=== PATIENT | female | born 1970 | race Caucasian/White ===

== ENCOUNTER → 2017-01-25 | Outpatient (CLI) | payer OTHER ==
[~2017-01-25] MED LIST: AMBIEN10 MG PO; BIRTH CONTROL PILL; CELEXA40 MG PO; HYDROCODONE/APAP; LEXAPRO20 MG PO; LORTAB 5/500 501 TAB PO; MELOXICAM1 POW; VICODIN 5/5001 UDTAB PO
== END ==
LOC: MC.RAD 08:20
DX: Z12.31 Encounter for screening mammogram for malignant neoplasm of breast (principal)

== ENCOUNTER → 2018-07-28 | Outpatient (CLI) | payer OTHER ==
[~2018-07-28] MED LIST changes: +AMBIEN 5MG TABLE5 MG PO; +CARAFATE 1GM1 G PO; +PRIL40 PO; +PRISTIQ25 MG PO
== END ==
LOC: COL.RAD 14:35
DX: R93.2 Abnormal findings on diagnostic imaging of liver and biliary tract (principal); R74.8 Abnormal levels of other serum enzymes; Z90.49 Acquired absence of other specified parts of digestive tract
CPT/HCPCS: A9585

== ENCOUNTER 2018-08-05 13:52 | Day surgery (SDC) | payer OTHER ==
[2018-08-05] VITALS (17 sets, daily range): BP systolic 113–147; BP diastolic 48–82; PULSE 55–84; TEMP 97.4–98.2
[~2018-08-05] VITALS: Ht 167.6 cm; Wt 96.6 kg
[~2018-08-05 13:52] MED LIST changes: -AMBIEN 5MG TABLE5 MG PO; -CARAFATE 1GM1 G PO; -PRIL40 PO; -PRISTIQ25 MG PO
[2018-08-05] MEDS ORDERED: PRISTIQ25 MG PO (14:21)
[2018-08-05] MEDS ORDERED: AMBIEN 5MG TABLE5 MG PO (14:22)
[2018-08-05] MEDS ORDERED: PRIL40 PO (14:22)
[2018-08-05] MEDS ORDERED: CARAFATE 1GM1 G PO (14:22)
== END 2018-08-05 20:15 ==
LOC: SDCO 13:52
DX: K80.50 Calculus of bile duct without cholangitis or cholecystitis without obstruction (principal); R93.2 Abnormal findings on diagnostic imaging of liver and biliary tract; R94.5 Abnormal results of liver function studies; K76.0 Fatty (change of) liver, not elsewhere classified; K58.8 Other irritable bowel syndrome; Z90.49 Acquired absence of other specified parts of digestive tract; Z83.71 Family history of colonic polyps
CPT/HCPCS: C1769; J2704; J7030; Q9967

== ENCOUNTER → 2018-09-29 | Outpatient (CLI) | payer OTHER ==
[~2018-09-29] MED LIST changes: +AMBIEN 5MG TABLE5 MG PO; +CARAFATE 1GM1 G PO; +PRIL40 PO; +PRISTIQ25 MG PO
== END ==
LOC: MC.RAD 08:14
DX: Z12.31 Encounter for screening mammogram for malignant neoplasm of breast (principal)